=== PATIENT | male | born 1955 | race Caucasian/White ===

== ENCOUNTER → 2022-04-19 | Outpatient (CLI) | payer SELFPAY ==
[2022-04-19 16:28] LABS: BASOPHILS ABSOLUTE AUTO 0.05 K/mm3 (0.00-0.23); BASOPHILS PERCENT AUTO 1 % (0-2); EOSINOPHILS ABSOLUTE AUTO 0.19 K/mm3 (0.00-0.68); EOSINOPHILS PERCENT AUTO 2 % (0-6); Hematocrit 42.6 % (37.0-53.0); IMMATURE GRAN ABSOLUTE AUTO 0.01 K/mm3 (0.00-0.10); IMMATURE GRAN PERCENT AUTO 0 % (0-1); LYMPHOCYTES ABSOLUTE AUTO 2.04 K/mm3 (0.84-5.20); LYMPHOCYTES PERCENT AUTO 20 % (21-46); MONOCYTES ABSOLUTE AUTO 0.65 K/mm3 (0.16-1.47); MONOCYTES PERCENT AUTO 6 % (4-13); Mean Corpuscular HGB 31.6 pg (26.0-34.0); Mean Corpuscular HGB Conc 35.2 g/dL (31.5-36.5); Mean Corpuscular Volume 90 fL (80-100); Mean Platelet Volume 10.4 fL (9.1-12.4); NEUTROPHILS ABSOLUTE AUTO 7.16 K/mm3 (1.96-9.15); NEUTROPHILS PERCENT AUTO 71 % (41-73); Platelet Count 267 K/mm3 (150-400); RDW Coefficient Variation 11.9 % (11.7-14.2); RDW Standard Deviation 38.9 fL (35.1-46.3); Red Blood Cell Count 4.74 M/mm3 (4.30-5.90)
[2022-04-19 16:48] LABS: Albumin/Globulin Ratio 1.1 (0.8-1.8); Bilirubin, Total 0.5 mg/dL (0.1-1.0); Bun/Creatinine Ratio 15.4 (12.0-20.0); Calcium, Blood 8.9 mg/dL (8.5-10.1); Creatinine, Blood 1.17 mg/dL (0.60-1.20); Globulin, Blood 3.7 g/dL (2.2-4.0); Potassium, Blood 3.9 mmol/L (3.5-5.5); Thyroid Stimulating Hormone 1.114 uIU/mL (0.360-4.800); Total Protein, Blood 7.7 g/dL (6.4-8.2)
== END ==
LOC: LAB SHORT 16:24
PROVIDERS: Physician Assistant
DX: R03.0 Elevated blood-pressure reading, without diagnosis of hypertension (principal)
CPT/HCPCS: 80053; 84443; 84484; 85025

== ENCOUNTER 2024-09-16 14:51 | Inpatient (IN) | payer OTHER ==
[~2024-09-16] VITALS: Ht 180.3 cm; Wt 85.0 kg
[2024-09-16] VITALS (14 sets, daily range): BP systolic 111–151; BP diastolic 71–89
[2024-09-16 15:36] LABS: BASOPHILS PERCENT AUTO 1 % (0-2); EOSINOPHILS ABSOLUTE AUTO 0.06 K/mm3 (0.00-0.68); EOSINOPHILS PERCENT AUTO 0 % (0-6); Hematocrit 44.6 % (37.0-53.0); Hemoglobin 15.8 g/dL (13.5-17.5); IMMATURE GRAN ABSOLUTE AUTO 0.06 K/mm3 (0.00-0.10); IMMATURE GRAN PERCENT AUTO 0 % (0-1); LYMPHOCYTES ABSOLUTE AUTO 1.84 K/mm3 (0.84-5.20); LYMPHOCYTES PERCENT AUTO 11 % (21-46); MONOCYTES ABSOLUTE AUTO 0.87 K/mm3 (0.16-1.47); MONOCYTES PERCENT AUTO 5 % (4-13); Mean Corpuscular HGB 31.9 pg (26.0-34.0); Mean Corpuscular HGB Conc 35.4 g/dL (31.5-36.5); Mean Corpuscular Volume 90 fL (80-100); Mean Platelet Volume 10.5 fL (9.1-12.4); NEUTROPHILS ABSOLUTE AUTO 13.16 K/mm3 (1.96-9.15); NEUTROPHILS PERCENT AUTO 82 % (41-73); Platelet Count 274 K/mm3 (150-400); RDW Coefficient Variation 11.9 % (11.7-14.2); RDW Standard Deviation 39.1 fL (35.1-46.3); Red Blood Cell Count 4.96 M/mm3 (4.30-5.90); White Blood Cell Count 16.09 K/mm3 (4.00-11.30)
[2024-09-16] MEDS ORDERED: Ondansetron HCl 2 MG / ML 2ML Vial ONE ×2 (15:36→17:23)
[2024-09-16] MEDS ORDERED: Ondansetron HCl 2 MG / ML 2ML Vial IV ONE (15:40)
[2024-09-16] MEDS ORDERED: Lactated Ringer's 1,000 ML IV ONE (15:40)
[2024-09-16] MEDS ORDERED: NEURONTIN300 MG PO (15:55)
[2024-09-16 15:58] LABS: Albumin, Blood 4.1 g/dL (3.4-5.0); Albumin/Globulin Ratio 1.1 (0.8-1.8); Bilirubin, Total 0.5 mg/dL (0.1-1.0); Calcium, Blood 9.4 mg/dL (8.5-10.1); Creatinine, Blood 1.06 mg/dL (0.60-1.20); Globulin, Blood 3.7 g/dL (2.2-4.0); Potassium, Blood 3.9 mmol/L (3.5-5.5); Total Protein, Blood 7.8 g/dL (6.4-8.2)
[2024-09-16] MEDS ORDERED: Prochlorperazine Edisylate 10 mg Vial IV ONE (16:15)
[2024-09-16] MEDS ORDERED: FentaNYL Citrate 50 MCG/ML 2 ML Injection ONE (16:59)
[2024-09-16] MEDS ORDERED: Midazolam HCl 1MG / ML 2ML Vial ONE (16:59)
[2024-09-16] MEDS ORDERED: NS 1,000 ML IV ONE (16:59)
[2024-09-16] MEDS ORDERED: NS 250 ML IV ONE (17:07)
[2024-09-16] MEDS ORDERED: Heparin Sodium 1000 Units/ML 10ML MDV ONE (17:07)
[2024-09-16] MEDS ORDERED: Atropine Sulfate 0.1 MG/ML 10ML SYR ONE (17:12)
[2024-09-16] MEDS ORDERED: Ondansetron HCl 2 MG / ML 2ML Vial IV PRN (17:20)
[2024-09-16] MEDS ORDERED: FLU VACC TS2024-25(6MOS UP)/PF 45 MCG/0.5 ML SYRINGE IM SCH (17:20)
[2024-09-16] MEDS ORDERED: FentaNYL Citrate 50 MCG/ML 2 ML Injection IV PRN (17:20)
--- NOTE | 2024-09-16 18:29 | NUR ---
PT ARRIVED FROM [facility] WITH TEMP PACER SET TO 60 BUT IN A SINUS RHYTHM AT A RATE OF 90. HE WAS ALERT AND ORIENTED, BUT DROWSY FROM MEDICATION. PT HAD NO COMPLAINT OF PAIN, ONLY A LITTLE NAUSEA. IS AT BEDSIDE, SHE IS A RECENTLY RETIRED NURSE.
[2024-09-16] MEDS ORDERED: Melatonin 5 MG Tablet PO PRN (20:25)
--- NOTE | 2024-09-16 23:31 | NUR ---
[facility] TRANSFER CLARIFICATION: [facility] CALLED WITH A BED ASSIGNMENT, BUT I WAS TOLD IN REPORT THAT WE ARE KEEPING THE PT AND GOING TO PLACE A PERMANENT PACEMAKER ON HIM ON THURSDAY. CALLED DR. JACINTO FOR CLARIFICATION AND HE STATED "YES, I WANTED THE TRANSFER CANCELED, WE HAVE A [facility] THAT CAN PLACE IT." [facility] WAS NOTIFIED TO CANCEL THE TRANSFER.
[2024-09-17] VITALS (23 sets, daily range): BP systolic 102–143; BP diastolic 68–109
[2024-09-17 03:43] LABS: BASOPHILS ABSOLUTE AUTO 0.02 K/mm3 (0.00-0.23); BASOPHILS PERCENT AUTO 0 % (0-2); EOSINOPHILS ABSOLUTE AUTO 0.11 K/mm3 (0.00-0.68); EOSINOPHILS PERCENT AUTO 1 % (0-6); Hematocrit 40.6 % (37.0-53.0); Hemoglobin 14.2 g/dL (13.5-17.5); IMMATURE GRAN ABSOLUTE AUTO 0.02 K/mm3 (0.00-0.10); IMMATURE GRAN PERCENT AUTO 0 % (0-1); LYMPHOCYTES ABSOLUTE AUTO 1.95 K/mm3 (0.84-5.20); LYMPHOCYTES PERCENT AUTO 21 % (21-46); MONOCYTES ABSOLUTE AUTO 0.83 K/mm3 (0.16-1.47); MONOCYTES PERCENT AUTO 9 % (4-13); Mean Corpuscular HGB 31.6 pg (26.0-34.0); Mean Corpuscular Volume 90 fL (80-100); Mean Platelet Volume 10.2 fL (9.1-12.4); NEUTROPHILS ABSOLUTE AUTO 6.48 K/mm3 (1.96-9.15); NEUTROPHILS PERCENT AUTO 69 % (41-73); Platelet Count 210 K/mm3 (150-400); RDW Standard Deviation 39.5 fL (35.1-46.3); White Blood Cell Count 9.41 K/mm3 (4.00-11.30)
[2024-09-17 04:06] LABS: Bun/Creatinine Ratio 12.7 (12.0-20.0); Calcium, Blood 8.9 mg/dL (8.5-10.1); Creatinine, Blood 1.1 mg/dL (0.60-1.20); Magnesium, Blood 1.7 mg/dL (1.6-2.4); Potassium, Blood 3.7 mmol/L (3.5-5.5)
--- NOTE | 2024-09-17 06:59 | NUR ---
SHIFT SUMMARY PATIENT LISTENED TO MUSIC FROM PHONE MOST OF NIGHT TO HELP HIM SLEEP. LIKES TO SLEEP ON HIS BACK BECAUSE OF THE TEMP PACER. NO PAIN AND NO COMPLAINTS. GAVE MELATONIN PRN TO ALSO HELP SLEEP PER PATEINT'S REQUEST. A&OX4 SBP 110'S AND HR 60-70. CALL LIGHT WITHIN REACH.
--- NOTE | 2024-09-17 07:23 | NUR ---
ASSUME CARE: I have assumed care of this patient.
[2024-09-17] MEDS ORDERED: Calcium Carbonate 500 MG Tab Chew PO PRN (15:20)
--- NOTE | 2024-09-17 15:20 | NUR ---
PROVIDER UPDATE: Pt complaining of epigastric pain that he describes as gas pain. Dr Pascual notified. See new orders.
--- NOTE | 2024-09-17 17:55 | NUR ---
SHIFT SUMMARY: Marv is plesantly alert and oriented x 4. He was up in chair for a few hours this afternoon to play cards with family. Pt is eating and using urinal without assistance. He reported a bout of heartburn after eating lunch which was resolved with calcium carbonate. Heart rate this shift approximately 50% paced.
--- NOTE | 2024-09-17 21:08 | NUR ---
ASSUMPTION OF CARE/ASSESSMENT: ASSUMED CARE OF PT AT 1900; BEDSIDE SHIRT REPORT RECIEVED FROM JERRELL KERN. PT IN BED, A&O X 4, PLEASANT AND COOPERATIVE WITH CARE. PT OVERALL INDEPENDENT WITH ADL'S, SBA NEEDED FOR CORD MANAGEMENT. PT ON RA, SPO2 94<, LUNGS CLEAR T/O AND DENIES SOB. SR ON MONITOR WITH INTERMITTEN PACED BEATS; TEMP. TRANSVENOUS PACER IN PLACE W/ RIJ ACCESS SITE. PACER SITS AT 32CM, WITH SETTINGS 60/5/2. NO SYNCOPAL EPISODES SINCE ER. PT DENIES CHEST PAIN/PRESSURE OR ANY HEADACHES. USING URINAL AT BEDSIDE INDEPENDENTLY. +BT, TOLERATING PO INTAKE. PPP X 4, COWART, AND SKIN INTACT. PIV TO BILAT AC'S; PATENT AND SALINE LOCKED. BED LOWERED, CALL LIGHT IN REACH.
[2024-09-18] VITALS (13 sets, daily range): BP systolic 81–117; BP diastolic 63–95
--- NOTE | 2024-09-18 06:10 | NUR ---
SHIFT SUMMARY: NO ACUTE CHANGES OVERNIGHT; VSS THROUGHOUT THE SHIFT. PT CONTINUES TO BE INTERMITTENLY PACED IN THE 60'S, BP STABLE. INDEPENDENT WITH ADL'S AND USES CALL LIGHT APPROPRIATELY. BED LOWERED, WILL REPORT OFF TO ONCOMING RN.
--- NOTE | 2024-09-18 11:15 | NUR ---
SHIFT ASSESSMENT PT A&OX4, FOLLOWING COMMANDS, AMBULATES WITH SBA TO MANAGE LINES. TOLERATING PO INTAKE. USING BEDSIDE COMMODE. PT DENIES ANY CP, SOB, OR DIZZINESS. TEMPORARY PACEMAKER DRESSSING IN PLACE, INTERMITTENT PACED RYTHM. PLAN FOR PACEMAKER PLACEMENT TOMORROW. NPO AFTER MIDNIGHT.
--- NOTE | 2024-09-18 17:34 | NUR ---
SHIFT SUMMARY PT A&OX4, CALM AND COOPERATIVE, AMBULATORY WITH SBA TO MANAGE PACEMAKER AND LINES. DENIES CP, SOB, OR DIZZINESS WHEN UP IN ROOM. NO ACUTE CHANGES TODAY, PT INFORMED OF NEED TO BE NPO AFTER MIDNIGHT.
[2024-09-19 00:43] VITALS: BP 133/79
--- NOTE | 2024-09-19 02:15 | NUR ---
REPORT GIVEN TO TALON KERN
[2024-09-19 04:15] VITALS: BP 124/89
--- NOTE | 2024-09-19 05:03 | NUR ---
End of shift summary No acute events overnight. Pt is calm, cooperative, and pleasant w/ care. AOx4. PT lung sounds clear-on room air, maintaining sats>95%. Pt denies cp or sob. Pt on continuous monitor, ventricular paced rhythm rate of 60-70s. BP stable. Pt using urinal independently. NPO after midnight pending permanent pacemaker placement today. Using call light appropriately. Plan of care ongoing.
--- NOTE | 2024-09-19 08:00 | NUR ---
[place] of care: Patient resting quietly in bed, with no complaints of distress or discomfort. All vital signs stable & he is V paced at 60. Family at bedside. NPO for PPM placement later today.
[2024-09-19 08:25] VITALS: BP 141/84
[2024-09-19 12:00] VITALS: BP 128/82
[2024-09-19] MEDS ORDERED: CeFAZolin Sodium 1000 mg Vial ONE (12:00)
[2024-09-19] MEDS ORDERED: NS 1,000 ML IV ONE ×2 (12:00)
[2024-09-19] MEDS ORDERED: Heparin Sodium 1000 Units/ML 10ML MDV ONE (12:00)
[2024-09-19] MEDS ORDERED: CeFAZolin Sodium 2,000 MG VIAL ONE (12:00)
[2024-09-19] MEDS ORDERED: NS 100 ML IV ONE (12:03)
[2024-09-19] MEDS ORDERED: Midazolam HCl 1MG / ML 2ML Vial ONE (12:47)
[2024-09-19] MEDS ORDERED: FentaNYL Citrate 50 MCG/ML 2 ML Injection ONE (12:47)
[2024-09-19 15:00] VITALS: BP 131/84
[2024-09-19] MEDS ORDERED: TraMADol HCl 50 MG Tab PO PRN (16:35)
[2024-09-19] MEDS ORDERED: Acetaminophen 325 MG TABLET PO PRN (16:35)
[2024-09-19] MEDS ORDERED: TRAM50 PO (17:53)
[2024-09-19 18:02] VITALS: BP 114/88
--- NOTE | 2024-09-19 18:20 | NUR ---
Patient given all discharge paperwork & follow up instructions & verbalized understanding. Vital signs stable prior to d/c.
== END 2024-09-19 18:22 | disposition home or self-care (01) | DRG 244 ==
LOC: ER 14:51 → ICUE 17:17
PROVIDERS: Emergency Medicine; ADMIT Family Medicine
PROC: 5A1223Z Performance of Cardiac Pacing, Continuous (ICD-10-PCS; 2024-09-16)
PROC: 02HK3JZ Insertion of Pacemaker Lead into Right Ventricle, Percutaneous Approach (ICD-10-PCS; 2024-09-16)
PROC: 0JH606Z Insertion of Pacemaker, Dual Chamber into Chest Subcutaneous Tissue and Fascia, Open Approach (ICD-10-PCS; principal; 2024-09-19)
PROC: 02H63JZ Insertion of Pacemaker Lead into Right Atrium, Percutaneous Approach (ICD-10-PCS; 2024-09-19)
PROC: 02PA3MZ Removal of Cardiac Lead from Heart, Percutaneous Approach (ICD-10-PCS; 2024-09-19)
DX: I44.2 Atrioventricular block, complete (principal); R10.13 Epigastric pain; M54.9 Dorsalgia, unspecified; G89.29 Other chronic pain; F10.10 Alcohol abuse, uncomplicated; D72.829 Elevated white blood cell count, unspecified; R11.2 Nausea with vomiting, unspecified; Z90.49 Acquired absence of other specified parts of digestive tract; Z79.899 Other long term (current) drug therapy; Z81.1 Family history of alcohol abuse and dependence
CPT/HCPCS: 33208; 33210; 36415; 70450; 71045; 71046; 71260; 74177; 76937; 80048; 80053; 82947; 83690; 83735; 84443; 84484; 85025; 92953; 93005; 93010; 93306; 96361-59; 96374-59; 96375-59; 99152; 99153; 99285-25; A9270; C1785; C1894; C1898; J0461; J0690; J0780; J1644; J2250; J2405; J3010; J7030; J7040; J7050; J7120; Q9967